=== PATIENT | male | born 1990 | race Hispanic/Latino ===

== ENCOUNTER 2018-09-02 17:25 | Emergency (ER) | payer SELFPAY ==
--- NOTE | 2018-09-02 18:19 | CT ---
Head CT without contrast 09/02/2018: COMPARISON: none HISTORY: Dizziness, headache, hand paresthesias TECHNIQUE: Axial CT imaging at 5 mm intervals from vertex through skull base without contrast FINDINGS: Paranasal sinuses and mastoid air cells well-aerated. No displaced calvarial fracture, intr acranial hemorrhage, midline shift, or mass effect. IMPRESSION: No acute findings.
[2018-09-02 18:30] LABS: #Basophils 0.1 thou/uL (0.0-0.2); #Eosinphils 0.1 thou/uL (0.0-0.7); #Lymphocytes 2.5 thou/uL (1.20-3.40); #Monocytes 0.7 thou/uL (0.11-0.59); #Neutrophils 3.9 thou/uL (1.40-6.50); %Basophils 0.9 % (0.0-1.0); %Eosinophils 1.6 % (0.0-10.0); %Lymphocytes 34.4 % (21.0-51.0); %Monocytes 9.4 % (0.0-10.0); %Neutrophils 53.7 % (42.0-75.0); Hemoglobin 15.4 g/dL (14.0-18.0); Mean Corpuscular Volume 91.3 fL (78.0-98.0); Mean Platelet Volume 6.7 fL (7.4-10.4); Platelet Count 354 thou/uL (130-400); RBC Distribution Width 11.4 % (11.5-14.5); Red Blood Cell (RBC) Count 4.96 mill/uL (4.70-6.10); White Blood Cell (WBC) Count 7.3 thou/uL (4.8-10.8)
--- NOTE | 2018-09-02 18:42 | RAD ---
Portable frontal chest radiograph: 09/02/2018 COMPARISON: None HISTORY: Chest pain, nausea, dizziness FINDINGS: Lungs are clear. Heart and mediastinal contours appear within normal limits. IMPRESSION: No acute findings.
[2018-09-02 18:50] LABS: ALT (SGPT) 25 U/L (8-55); AST (SGOT) 20 U/L (5-34); Albumin 4.5 g/dL (3.5-5.0); Alkaline Phosphatase 72 U/L (40-150); Anion Gap 10 mmol/L (10-20); BUN (Urea Nitrogen) 15 mg/dL (8.9-20.6); Bilirubin, Total 0.4 mg/dL (0.2-1.2); CK (CPK) 131 U/L (30-200); Calc. Creatinine Clearance 0 mL/min (70-130); Calcium 9.5 mg/dL (7.8-10.44); Carbon Dioxide 27 mmol/L (22-29); Chloride 104 mmol/L (98-107); Estimated GFR-MDRD Greater than 90; Globulin 3.2 g/dL (2.4-3.5); Glucose 84 mg/dL (70-105); Potassium 3.5 mmol/L (3.5-5.1); Protein, Total 7.7 g/dL (6.0-8.3); Sodium 137 mmol/L (136-145)
[2018-09-02] MEDS ORDERED: Ondansetron ODT 4 MG TAB ONE (19:02)
== END 2018-09-02 19:10 | disposition home or self-care (01) ==
LOC: ERS 17:25
DX: R42 Dizziness and giddiness (principal)
CPT/HCPCS: 70450; 71045; 80053; 82550; 84443; 85025; 93005; Q0162

== ENCOUNTER 2018-09-14 07:31 | Outpatient (CLI) | payer OTHER ==
[2018-09-14] MEDS ORDERED: Iopamidol 300 61% 50 ML VIAL FS ONE (09:15)
[2018-09-14] MEDS ORDERED: Lidocaine 1% PF 10 ML AMP ONE (09:15)
[2018-09-14] MEDS ORDERED: Gadobenate Dimeglumine 529 MG/1 ML (20ML VIAL) ONE (09:15)
[2018-09-14] MEDS ORDERED: EPINEPHrine 1 MG/ML AMP ONE (09:15)
== END 2018-09-14 07:32 | disposition home or self-care (01) ==
LOC: RAD 07:31
PROVIDERS: ATTEND Orthopaedic Surgery
DX: Z53.9 Procedure and treatment not carried out, unspecified reason (principal)
CPT/HCPCS: A9577; J0171; J3490; Q9967

== ENCOUNTER 2018-09-30 10:35 | Outpatient (CLI) | payer OTHER ==
--- NOTE | 2018-09-30 13:56 | MRI ---
MR ARTHROGRAM RIGHT SHOULDER: DTAE: 09/30/2018. PROVIDED CLINICAL HISTORY: Right shoulder pain. FINDINGS: The components of the rotator cuff appear intact. The long head biceps tendon appears intact and nor rosanna located. The glenoid labrum and glenohumeral articular cartilage appear normal. There is no significant subacromial subdeltoid bursal fluid. Regional marrow and muscular signal harlan ear normal. IMPRESSION: No evidence for rotator cuff or glenoid labral tear. POS: C
--- NOTE | 2018-09-30 15:00 | RAD ---
Arthrogram right shoulder: HISTORY: 27-year-old male with persistent right shoulder pain. Suspected labral tear. TECHNIQUE: Signed informed consent obtained. Patient placed supine on fluoroscopy table. Anterior skin of right shoulder prepared and draped in usual sterile fashion. 25-gauge needle used to apply buffered lidocaine. 22-gauge spinal needle advanced into the anterior superior aspect of the glenohumeral join t under brief, intermittent fluoroscopy. Total of 10 mL of normal saline solution containing iodinated contrast, MultiHance gadolinium-based contrast agent, small amount of lidocaine and epineph rine, injected within the intracapsular space. Needle removed. Patient tolerated the procedure well. No complications. FINDINGS: Wool Grower views of right shoulder are normal. Fluoroscopic images demonstrate good contrast opacification of the intracapsular glenohumeral joint s pace. IMPRESSION: Successful right shoulder arthrogram. See separate report of subsequent MRI.
== END 2018-09-30 10:36 | disposition home or self-care (01) ==
LOC: RAD 10:35
PROVIDERS: ATTEND Orthopaedic Surgery
DX: M75.41 Impingement syndrome of right shoulder (principal)
CPT/HCPCS: 23350

== ENCOUNTER 2019-07-14 00:31 | Emergency (ER) | payer OTHER ==
[2019-07-14] MEDS ORDERED: Dexamethasone 10 MG/ML VIAL ONE (03:12)
== END 2019-07-14 03:14 | disposition home or self-care (01) ==
LOC: ERS 00:31
DX: J02.0 Streptococcal pharyngitis (principal)
CPT/HCPCS: 99283; J1100

== ENCOUNTER 2021-09-19 09:01 | Outpatient (CLI) | payer OTHER | END 2021-09-19 09:02 | disposition home or self-care (01) | LOC: BICRAD 09:01 | PROVIDERS: ATTEND Nurse Practitioner Family | DX: M25.432 Effusion, left wrist (principal) | CPT/HCPCS: 36415; 80053; 80061; 83036; 84443; 85025 ==

== ENCOUNTER 2021-10-05 09:00 | Outpatient (CLI) | payer OTHER | END 2021-10-05 09:01 | disposition home or self-care (01) | LOC: BICULT 09:00 | PROVIDERS: ATTEND Nurse Practitioner Family | DX: N48.89 Other specified disorders of penis (principal) | CPT/HCPCS: 76870; 93976 ==